=== PATIENT | male | born 1965 | race Caucasian/White ===

== ENCOUNTER 2019-10-02 17:31 | Emergency (ER) | payer BC, SELFPAY ==
[2019-10-02 17:48] VITALS: BP 178/93; PULSE 101; RESP 20; TEMP 36.9; O2SAT 97; BMI 23.7
--- NOTE | 2019-10-02 17:53 | XR_ITS ---
PROCEDURE: XR KUB CLINICAL INDICATION: ABD PAIN COMPARISON: No exams were available for comparison FINDINGS: There is a mild amount of retained colonic feces in the right colon. No intestinal obstruction or free air. Bowel gas pattern is nonspecific with some nondistended gas-filled loops of small bowel as well. No acute bony anomalies or abnormal calcifications. There is mild sclerosis of the SI joints on both sides IMPRESSION: Mild amount of retained colonic feces otherwise negative Dictated by: Ace Marti MD 10/02/2019 22:27 Electronically signed by Ace Marti MD in [place] 10/02/2019 22:27
--- NOTE | 2019-10-02 18:17 | HMH.EDUTC ---
[facility] [place]ression: Constipation Qualifiers: Constipation type: unspecified constipation type Qualified Code(s): K59.00 - Constipation, unspecified Disposition: Home, Self-Care Condition on Discharge: Good Instructions: Constipation Additional Instructions: Drink plenty of fluids. Take the colace (stool softener) everyday. It is not a laxative. Take the magnesium citrate as directed. If that doesn't work, then you could use the suppository. Follow up with your regular doctor or return here for worsening symptoms. GO TO THE ER FOR ANY WORSENING SYMPTOMS OR CONCERNS Prescriptions: Ondansetron [Zofran 4mg ODT] 4 mg PO Q8HP PRN #10 tab.rapdis PRN Reason: Nausea Transmission Status: Received by [id number] Bisacodyl [Bisacodyl 10mg Supp] 10 mg RC DAILYP PRN #10 supp PRN Reason: Constipation Transmission Status: Received by [id number] Docusate Sodium [Colace] 100 mg PO DAILY 30 Days #30 cap Transmission Status: Received by [id number] Magnesium Citrate [Magnesium Citrate 10oz Bottle] 1 bottle PO ONCE #1 bottle Transmission Status: Received by [id number] Referrals: Desean Izaguirre MD [Primary Care Provider] - Time of Disposition: 18:21 Medical Decision Making - Medical Records Medical records reviewed: No: I reviewed the patient's medical records. - Ramy Inquiry Pt receiving controlled substance: No Vital Signs: 10/02/19 17:48 10/02/19 18:20 Temperature 98.4 F 98.4 F Temperature Source Oral Pulse Rate 101 H Pulse Rate [Right Brachial] 101 H Respiratory Rate 20 20 Blood Pressure 178/93 H Blood Pressure [Right Arm] 178/93 H Blood Pressure Mean [Right Arm] 121 Blood Pressure Source [Right Arm] Automatic Cuff Blood Pressure Position [Right Arm] Sitting 02 Sat by Pulse Oximetry 97 Oxygen Delivery Method Room Air - Lab Data Lab Results 10/02/19 17:53: Urine Color Yellow, Urine Appearance Clear, Urine pH 5.0, Ur Specific [place] 1.030, Urine Protein 1+, Urine Glucose (UA) Negative, Urine Ketones 15, Urine Blood 2+, Urine Nitrate Negative, Urine Bilirubin Negative, Urine Urobilinogen 0.2, Ur Leukocyte Esterase Negative Orders (Tests/Meds): ORDERS Category Date Time Status KUB (single view) [XR KUB] Stat Exams 10/02/19 17:53 Taken - Radiology Data #1 Image(s): Abdomen Image Reviewed: Yes I reviewed the patient's radiology image [facility] [place] - General Stated complaint: stomach pain Time Seen by Provider: 10/02/19 18:00 Mode of Arrival: Ambulatory Source of Information: Patient Limitations: No Limitations Description of Symptoms (Recalled from Triage Doc. by RN): PATIENT C/O PAIN AND PRESSURE TO MID-LOWER ABDOMEN SINCE LAST NIGHT. LAST GOOD BOWEL MOVEMENT WAS THE DAY BEFORE YESTERDAY, AND HE STATES HE DOES NOT HAVE BM EVERYDAY. DENIES NAUSEA OR DECREASED APPETITE; STATES HE DID MAKE HIMSELF VOMIT X1 YESTERDAY TO TRY AND MAKE THE PAIN BETTER HEENT Symptoms (Recalled from RN notes): No Resp Symptoms (Recalled from RN notes): No Skin Symptoms (Recalled from RN notes): No MS Symptoms (Recalled from RN notes): No Functional Status (Recalled from RN notes): WNL - History of Present Illness Provider Complaint: He c/o abdominal cramping and constipation since yesterday. - Related Data Home Medications Medication Instructions Recorded Confirmed Metformin HCl [Metformin HCl ER] 500 mg PO BID 10/02/19 10/02/19 Sitagliptin Phosphate [Januvia 100 mg PO DAILY 10/02/19 10/02/19 100mg tablet] Previous Rx's Medication Instructions Recorded Bisacodyl [Bisacodyl 10mg Supp] 10 mg RC DAILYP PRN #10 supp 10/02/19 Docusate Sodium [Colace] 100 mg PO DAILY 30 Days #30 cap 10/02/19 Magnesium Citrate [Magnesium 1 bottle PO ONCE #1 bottle 10/02/19 Citrate 10oz Bottle] Ondansetron [Zofran 4mg ODT] 4 mg PO Q8HP PRN #10 tab.rapdis 10/02/19 Allergies Allergy/AdvReac Type Severity Reaction Stat
[2019-10-02 18:20] VITALS: BP 178/93; PULSE 101; RESP 20; TEMP 36.9; O2SAT 97
[2019-10-02 19:14] LABS: Apearance,Urine Clear (Clear); Bilirubin,Urine Negative (Negative); Blood, Urine 2+ (Negative); Color,Urine Yellow (Yellow); Glucose,Urine (UA) Negative (Negative); Ketones,Urine 15 (Negative); Protein,Urine 1+ (Negative); UTC Leukocyte Esterase,Urine Negative (Negative); UTC Nitrate,Urine Negative (Negative); Urobilinogen,Urine 0.2 EU/dl (0.2)
== END 2019-10-02 18:25 | disposition home or self-care (01) ==
PROVIDERS: Emergency Provider Nurse Practitioner Family; PCP Internal Medicine Adolescent Medicine
DX: K59.00 Constipation, unspecified (principal)
CPT/HCPCS: 74018; 81003; 99202

== ENCOUNTER 2020-01-09 12:22 | Emergency (ER) | payer BC, SELFPAY ==
[2020-01-09 12:34] VITALS: BP 156/93; PULSE 96; RESP 14; TEMP 37.8; O2SAT 98; BMI 23.1
--- NOTE | 2020-01-09 12:35 | XR_ITS ---
PROCEDURE: XR FOOT LT MIN 3V CLINICAL INDICATION: horse stepped on foot Posttraumatic pain COMPARISON: No exams were available for comparison FINDINGS: No fracture or dislocation. No lytic or blastic change. There is normal mineralization. The joint spaces are well-preserved. No significant degenerative/arthritic changes. No erosive changes evident. Other findings:None. IMPRESSION: No acute findings. Dictated by: Ace Marti MD 01/09/2020 18:32 Ace Marti MD in [place] 01/09/2020 18:33
--- NOTE | 2020-01-09 12:37 | HMH.EDUTC ---
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 Take the antibiotics as prescribed and apply the topical antibiotics as directed. Follow up with Dr. White. I put in a referral but you need to call her office and schedule an appointment. Follow up with your regular doctor. GO TO THE ER FOR ANY WORSENING SYMPTOMS Prescriptions: Ciprofloxacin HCl [Cipro 500mg Tab] 500 mg PO BID 10 Days #20 tab Transmission Status: Received by [id number] clindamycin HCL [Clindamycin HCl 300mg Cap] 300 mg PO Q8 10 Days #30 cap Transmission Status: Received by [id number] Referrals: Desean Izaguirre MD [Primary Care Provider] - Irasema White DPM [Staff Physician] - Time of Disposition: 13:21 Medical Decision Making - Medical Records Medical records reviewed: No: I reviewed the patient's medical records. - Ramy Inquiry Pt receiving controlled substance: No Vital Signs: 01/09/20 12:34 01/09/20 13:22 Temperature 100.1 F H 100.1 F H Temperature Source Oral Pulse Rate 96 H Pulse Rate [Right Brachial] 96 H Respiratory Rate 14 14 Blood Pressure 156/93 H Blood Pressure [Right Arm] 156/93 H Blood Pressure Mean [Right Arm] 114 Blood Pressure Source [Right Arm] Automatic Cuff Blood Pressure Position [Right Arm] Sitting 02 Sat by Pulse Oximetry 98 Oxygen Delivery Method Room Air Orders (Tests/Meds): ED MEDICATIONS Discontinued Medications Generic Name Dose Route Start Last Admin Trade Name Freq PRN Reason Stop Dose Admin Ceftriaxone Sodium 1 gm 01/09/20 12:59 01/09/20 13:09 Rocephin 1gm Vial IM 01/09/20 13:00 1 gm ONCE ONE Administration Protocol Lidocaine HCl 0 ml 01/09/20 12:59 01/09/20 13:09 Lidocaine 1% 5ml Pf Vial IM 01/09/20 13:00 2.1 ml ONCE ONE Administration ORDERS Category Date Time Status XR foot LT min 3V Stat Exams 01/09/20 12:35 Taken - Radiology Data #1 Image(s): Foot/Toes Image Reviewed: Yes I reviewed the patient's radiology image, Yes I have reviewed radiologist's interpretation Preliminary Findings: No Fracture [place]en [facility] [place] - General Stated complaint: left toe mashed ao horse stepped on it Time Seen by Provider: 01/09/20 12:37 - History of Present Illness Provider Complaint: He states that he was walking beside his horse 3 days ago when the horse accidentily stepped on his right foot. Most of the weight came down on his great toe. Since then he has had pain at the site and bruising. Also, his nail on that toe was raised partially up off the nail bed. He is diabetic. His tetanus immunization is up to date. - Related Data Home Medications Medication Instructions Recorded Confirmed Metformin HCl [Metformin HCl ER] 500 mg PO BID 10/02/19 01/09/20 Sitagliptin Phosphate [Januvia 100 mg PO DAILY 10/02/19 01/09/20 100mg tablet] Previous Rx's Medication Instructions Recorded Ciprofloxacin HCl [Cipro 500mg 500 mg PO BID 10 Days #20 tab 01/09/20 Tab] clindamycin HCL [Clindamycin HCl 300 mg PO Q8 10 Days #30 cap 01/09/20 300mg Cap] Allergies Allergy/AdvReac Type Severity Reaction Status Date / Time No Known Allergies Allergy Verified 10/02/19 18:00 [facility] History - Hepatitis A Screen Attestation statement:: This patient has been screened for Hep
[2020-01-09 13:22] VITALS: BP 156/93; PULSE 96; RESP 14; TEMP 37.8; O2SAT 98
== END 2020-01-09 13:26 | disposition home or self-care (01) ==
PROVIDERS: Emergency Provider Nurse Practitioner Family; PCP Internal Medicine Adolescent Medicine
DX: S97.82XA Crushing injury of left foot, initial encounter (principal); W55.19XA Other contact with horse, initial encounter; Y92.73 Farm field as the place of occurrence of the external cause; E11.9 Type 2 diabetes mellitus without complications; Z79.84 Long term (current) use of oral hypoglycemic drugs
CPT/HCPCS: 73630; 96372; 99201

== ENCOUNTER → 2020-03-21 07:07 | Outpatient (CLI) | payer BC, SELFPAY ==
[2020-03-22 14:03] LABS: Covid-19 Nasal PCR Sendout Lex NOT DETECTED
== END ==
PROVIDERS: Visit Provider Ophthalmology
DX: Z11.59 Encounter for screening for other viral diseases (principal)
CPT/HCPCS: U0004

== ENCOUNTER → 2020-06-01 07:30 | Outpatient (CLI) | payer BC, SELFPAY ==
[2020-06-01 14:40] LABS: Chloride 103 mmol/L (98-107); Sodium 140 mmol/L (136-145)
[2020-06-01 14:41] LABS: Potassium 4.8 mmoL/L (3.5-5.1)
[2020-06-01 14:43] LABS: Alanine Aminotransferase 18 U/L (12-78); Albumin Level 4.4 g/dl (3.5-5.0); Albumin/Globulin Ratio 1.3 (1.1-1.8); Alkaline Phosphatase 66 U/L (38-126); Anion Gap 10.8 mEq/L (5-15); Aspartate Amino Transferase 19 U/L (17-59); Bilirubin,Total 0.5 mg/dl (0.2-1.3); Blood Urea Nitrogen 23 mg/dl (9-20); Calcium 10.2 mg/dl (8.4-10.2); Carbon Dioxide 31 mmol/L (22.0-30.0); Estimated Glomerular Filt Rate 69 ml/min (>60); GFR (African American) 83 ML/MIN (>60); Globulin 3.5 g/dL (1.3-3.2); Glucose 175 mg/dl (74-100); Total Protein,Serum 7.9 g/dl (6.3-8.2)
[2020-06-01 16:09] LABS: Hemoglobin A1C 6.9 % (4.0-6.0)
== END ==
PROVIDERS: Visit Provider Internal Medicine Adolescent Medicine
DX: E11.9 Type 2 diabetes mellitus without complications (principal); Z79.84 Long term (current) use of oral hypoglycemic drugs
CPT/HCPCS: 36415; 80053; 83036

== ENCOUNTER → 2021-02-23 17:38 | Outpatient (CLI) | payer BC, SELFPAY ==
[2021-02-23 21:23] LABS: Alanine Aminotransferase 20 U/L (12-78); Albumin Level 4.5 g/dl (3.5-5.0); Albumin/Globulin Ratio 1.5 (1.1-1.8); Alkaline Phosphatase 66 U/L (38-126); Anion Gap 14.1 mEq/L (5-15); Aspartate Amino Transferase 34 U/L (17-59); Bilirubin,Total 0.5 mg/dl (0.2-1.3); Blood Urea Nitrogen 22 mg/dl (9-20); Carbon Dioxide 27 mmol/L (22.0-30.0); Chloride 104 mmol/L (98-107); Cholesterol 218 mg/dl (140-200); Estimated Glomerular Filt Rate 99 ml/min (>60); GFR (African American) 120 ML/MIN (>60); Glucose 149 mg/dl (74-100); HDL Cholesterol 44 mg/dl (40-60); Potassium 5.1 mmoL/L (3.5-5.1); Sodium 140 mmol/L (136-145); Total Protein,Serum 7.5 g/dl (6.3-8.2); Triglycerides 76 mg/dl (30-150); VLDL Cholesterol 15 mg/dL (0-40)
[2021-02-23 21:34] LABS: Direct LDL Cholesterol 151.64 mg/dL (100-129)
== END ==
PROVIDERS: Visit Provider Internal Medicine Adolescent Medicine
DX: E11.9 Type 2 diabetes mellitus without complications (principal); Z79.84 Long term (current) use of oral hypoglycemic drugs
CPT/HCPCS: 80053; 80061; 83036

== ENCOUNTER 2022-03-24 22:12 | Emergency (ER) | payer BC, SELFPAY ==
[2022-03-24 22:14] VITALS: BP 96/63; PULSE 68; RESP 16; TEMP 36.4; O2SAT 97; BMI 23.7
--- NOTE | 2022-03-24 22:56 | CT_ITS ---
PROCEDURE INFORMATION: Exam: CT Abdomen And Pelvis With Contrast Exam date and time: 03/24/2022 11:28 PM Age: 57 years old Clinical indication: Vomiting TECHNIQUE: Imaging protocol: Computed tomography of the abdomen and pelvis with contrast. Radiation optimization: All CT scans at this facility use at least one of these dose optimization techniques: automated exposure control; mA and/or kV adjustment per patient size (includes targeted exams where dose is matched to clinical indication); or iterative reconstruction. Contrast material: ISOVUE; Contrast volume: 75 ml; Contrast route: IV; COMPARISON: CR XR KUB 10/02/2019 5:52 PM FINDINGS: Lungs: No acute finding. Coronary arteries: There are moderate coronary artery calcifications. Liver: Mild hepatic steatosis is evident. Gallbladder and bile ducts: Normal. No calcified stones. No ductal dilation. Pancreas: Normal. No ductal dilation. Spleen: Normal. No splenomegaly. Adrenal glands: Normal. No mass. Kidneys and ureters: Normal. No hydronephrosis. There is a 7 mm left cortical cyst and a 30 mm right cortical cyst. Stomach and bowel: Multiple loops of small bowel demonstrate diffuse wall thickening and enhancement. There may also be wall thickening of the descending colon although it is not distended. Appendix: No evidence of appendicitis. Intraperitoneal space: There is mild ascites. Mild mesenteric edema is noted. Vasculature: There is moderate calcific atherosclerotic disease. There is no aneurysmal dilation of the abdominal aorta. Lymph nodes: There are no enlarged mesenteric lymph nodes. Urinary bladder: Unremarkable as visualized. Reproductive: Unremarkable as visualized. Bones/joints: Unremarkable. No acute fracture. Soft tissues: Unremarkable. IMPRESSION: 1. Findings consistent with enteritis and possible enterocolitis. There is no obstruction. Mild ascites and mesenteric edema are evident. 2. Mild fatty infiltration of the liver. 3. Moderate coronary artery calcifications.
[2022-03-24 23:05] LABS: Basophils # 0.1 K/mm3 (0-0.2); Basophils % 0.4 % (0.1-2.0); Eosinophils # 0.3 K/mm3 (0.0-0.4); Eosinophils % 1.3 % (0.1-12.0); Hematocrit 51.2 % (42.0-52.0); Hemoglobin 16.6 g/dL (14.1-18.0); Lymphocytes # 2.3 K/mm3 (0.7-4.5); Lymphocytes % 11.2 % (10-50); Mean Corpuscular HGB Conc 32.4 g/dL (31.8-35.4); Mean Corpuscular Hemoglobin 30.1 pg (27.0-31.2); Mean Corpuscular Volume 92.8 fl (80-94); Mean Platelet Volume 8.5 fl (7.4-10.4); Monocytes # 0.8 K/mm3 (0.1-1.0); Monocytes % 4.1 % (1.7-9.3); Neutrophils # 16.8 K/mm3 (1.8-7.8); Neutrophils % 82.9 % (37.0-80.0); Platelet Count 283 K/mm3 (142-424); Red Blood Count 5.52 M/mm3 (4.60-6.20); Red Cell Distribution Width 13.2 % (11.5-17.5)
--- NOTE | 2022-03-24 23:08 | ECG_ITS ---
APPROVED REPORT Exam: Resting ECG HR:61 bpm ECG Measurements Heart Rate 61 AXES MI 155 P 50 QRSd 106 QRS 57 QT 388 T 71 QTc 392 Conclusion SINUS RHYTHM NORMAL ECG UNCONFIRMED REPORT Electronically signed by : Todd Jeffery MD 03/26/2022 20:01:41
[2022-03-24 23:09] LABS: White Blood Count 20.2 K/mm3 (4.8-10.8)
[2022-03-24 23:11] LABS: Lactic Acid 1.7 mmol/L (0.7-2.1); MANUAL DIFFERENTIAL MANUAL DIFFERENTIAL (MANUAL DIFF)
[2022-03-24 23:12] LABS: Alanine Aminotransferase 24 U/L (12-78); Albumin Level 4.1 g/dl (3.5-5.0); Albumin/Globulin Ratio 1.2 (1.1-1.8); Alkaline Phosphatase 103 U/L (38-126); Amylase 62 U/L (30-110); Aspartate Amino Transferase 53 U/L (17-59); Bilirubin,Total 0.5 mg/dl (0.2-1.3); Blood Urea Nitrogen 29 mg/dl (9-20); Calcium 9.9 mg/dl (8.4-10.2); Carbon Dioxide 23 mmol/L (22.0-30.0); Chloride 106 mmol/L (98-107); Creatinine Clearance Estimated 79 mL/min (50-200); Estimated Glomerular Filt Rate 62 ml/min (>60); GFR (African American) 75 ML/MIN (>60); Globulin 3.3 g/dL (1.3-3.2); Glucose 177 mg/dl (74-100); Lipase 90 U/L (23-300); Sodium 140 mmol/L (136-145); Total Protein,Serum 7.4 g/dl (6.3-8.2)
[2022-03-24 23:40] LABS: Lymphocytes % 15 % (10-50); Neutrophils % 77 % (42-76); Platelet Estimate Normal; RBC Morphology Normal; Total Cells Counted 100
--- NOTE | 2022-03-25 00:46 | XR_ITS ---
PROCEDURE INFORMATION: Exam: XR Sacrum and Coccyx, 2 or More Views Exam date and time: 03/25/2022 12:58 AM Age: 57 years old Clinical indication: Injury or trauma; Fall; Blunt trauma (contusions or hematomas) TECHNIQUE: Imaging protocol: XR of the sacrum and coccyx, 2 or more views. COMPARISON: CR XR HIP LT 2-3V W/PELVIS 03/25/2022 12:53 AM FINDINGS: Bones/joints: The sacrum and coccyx are intact. There is no fracture. The SI joints, hips and pubic symphysis are normally aligned. Soft tissues: Normal. Organs: Urinary bladder is distended with contrast from recent CT. IMPRESSION: No acute fracture of the sacrum and coccyx.
--- NOTE | 2022-03-25 00:46 | XR_ITS ---
PROCEDURE INFORMATION: Exam: XR Left Hip Exam date and time: 03/25/2022 12:53 AM Age: 57 years old Clinical indication: Injury or trauma; Fall; Blunt trauma (contusions or hematomas); Left; Hip TECHNIQUE: Imaging protocol: Radiologic exam of the Left hip. Views: 2 or 3 views hip with pelvis when performed. COMPARISON: CT ABDOMEN PELVIS W CON 03/24/2022 11:28 PM FINDINGS: Bones/joints: The bony pelvis is intact. There is no fracture. The SI joints, hips and pubic symphysis are normally aligned. Dedicated imaging of the left hip does not demonstrate a fracture or evidence of avascular necrosis. No significant degenerative changes are appreciated. Soft tissues: Unremarkable. IMPRESSION: No acute fracture of the pelvis or hips.
--- NOTE | 2022-03-25 01:04 | HMH.EDNVD ---
Discharge Plan Disposition Patient Disposition: Home, Self-Care Chief Complaint: Nausea/Vomiting/Diarrhea Prescriptions Prescriptions: No Action clindamycin HCl 300 MG capsule 300 mg PO Q8 10 Days Qty: 30 0RF ciprofloxacin HCl 500 MG tablet 500 mg PO BID 10 Days Qty: 20 0RF metformin 500 MG tablet extended release 24 hr 500 mg PO BID sitagliptin phosphate 100 MG tablet 100 mg PO DAILY Referrals Follow up/Referrals: Todd Jeffery MD [Primary Care Provider] - See instructions Clinical Impressions Clinical Impression: Enteritis Instructions Patient Instructions: DI for Nausea -- Adult Discharge ED Provider: Anoop Herr Nausea/Vomiting/Diarrhea HPI General Chief complaint: Nausea/Vomiting/Diarrhea Stated complaint: AO 03/24 fall, vomiting Time Seen by Provider: 03/25/22 01:04 Mode of Arrival: Ambulatory Source of Information: Patient, Spouse and Medical Record Limitations: No Limitations Description of Symptoms (Recalled from ER Triage Doc. by RN): pt c/o vomiting and weakness the pt stated that at 6pm he was eating dinner and vomited at 7pm then got very weak. the pt vomited again anf then laid down when the pt got up he proceeded to vomit again he fell from the kitchen table from a seated position and was extremely dizzy the pt states that he vomited a few times on the way to the ED tonight. the pt states he has had 3 of these episodes in the past few years History of Present Illness HPI Narrative: acute episode of nausea and vomiting after meal has some abd pain - no true syncope - no palpitations and has had a few episodes in past assoc with meals - no bldy diarrhea and back to baseline now - no chest pain - pt is diabetic - no known ht dis and no tob use complaint: vomiting and abdominal pain Onset (ago): hour(s) Associated Abdominal Pain: Yes Location of pain: LLQ Severity: similar to previous episodes Quality: sharp Consistency: intermittent Associated symptoms: denies other symptoms Related Data Home Medications Medication Instructions Recorded Confirmed metformin 500 mg tablet,extended 500 mg PO BID Diabetes 10/02/19 01/09/20 release 24 hr sitagliptin phosphate 100 mg tablet 100 mg PO DAILY Diabetes 10/02/19 01/09/20 Previous Rx's Medication Instructions Recorded ciprofloxacin HCl 500 mg tablet 500 mg PO BID 10 days #20 tabs 01/09/20 clindamycin HCl 300 mg capsule 300 mg PO Q8 10 days #30 caps 01/09/20 Allergies Allergy/AdvReac Type Severity Reaction Status Date / Time No Known Allergies Allergy Verified 10/02/19 18:00 [facility] Disclaimer: The information contained in this section may have been updated after the patient was seen, as this information can be updated by other users. Social History Smoking Status: Former smoker alcohol intake: never current occupational status: other Travel in the last 8 weeks: None ROS Obtained: Yes All systems reviewed & no additional complaints except as documented Physical Exam General General appearance: alert Head Head exam: normocephalic Eye Eye exam: Present PERRL; Absent scleral icterus ENT ENT exam: Present mucous membranes moist Neck Neck exam: Present trachea midline Respiratory Respiratory exam: Absent respiratory distress Cardiovascular Cardiovascular exam: Present regular rate and systolic murmur Abdominal Exam Abdominal exam: Present soft; Absent tenderness, guarding, rebound or rigidity Extremities Exam Extremities exam: Present full ROM Neurological Exam Neurological exam: Present alert, oriented X3 and CN II-XII intact Skin Skin exam: Present warm; Absent rash Medical Decision Making Medical Records Medical records reviewed: Yes I reviewed the patient's medical records. Ramy Inquiry Pt receiving controlled substance: No Vital Signs: 03/24/22 22:14 Temperature 97.6 F Temperature Source Oral Pulse Rate [Left] 68 Respiratory Rate 16 Blood Pr
[2022-03-25 01:17] LABS: Troponin I < 0.01 ng/ml (0.00-0.034)
[2022-03-25 01:21] LABS: Microscopic, Urine URINE MICROSCOPIC (MICROSCOPIC)
[2022-03-25 01:22] LABS: Appearance,Urine CLEAR (Clear); Bilirubin,Urine Negative (Negative); Blood, Urine Negative (Negative); Color,Urine YELLOW (Yellow); Glucose,Urine (UA) 2+ (Negative); Ketones,Urine 1+ (Negative); Leukocyte Esterase,Urine Negative (Negative); Nitrate,Urine Negative (Negative); PH,Urine 5.5 (5.0-8.5); Protein,Urine Negative (Negative); Urobilinogen,Urine 0.2 EU/dl (0.2)
[2022-03-25 02:07] LABS: Troponin I < 0.01 ng/ml (0.00-0.034)
[2022-03-25 02:40] VITALS: BP 131/79; PULSE 72; RESP 16; TEMP 36.7; O2SAT 98
== END 2022-03-25 02:56 | disposition home or self-care (01) ==
PROVIDERS: Emergency Provider Emergency Medicine; PCP Internal Medicine Adolescent Medicine
DX: K52.9 Noninfective gastroenteritis and colitis, unspecified (principal)
CPT/HCPCS: 72220; 73502; 74177; 80053; 81001; 82150; 83605; 83690; 84484; 85007; 85025; 87040; 93005; 96375; 99285; J2405; Q9967

== ENCOUNTER 2023-05-07 08:09 | Outpatient (CLI) | payer BC, SELFPAY ==
--- NOTE | 2023-05-07 08:13 | US_ITS ---
FINAL REPORT CLINICAL HISTORY: H/O NICOTINE DEPENDENCE COMPARISON: None FINDINGS: ULTRASOUND ABDOMINAL AORTA Findings: Sagittal and transverse images with Doppler exam was performed of the aorta. There is no evidence of abdominal aortic aneurysm. Aorta measures up to 1.7 cm. Mild plaque disease is noted. Proximal iliac vessels are normal in caliber. Aorta is patent by Doppler exam without gross stenosis. IMPRESSION: No evidence of aortic aneurysm Reviewed, Interpreted and Dictated by David Beck MD Transcribed by Noemi Vizcarra Authenticated and [facility]
== END 2023-05-07 23:59 ==
LOC: RAD 08:10
PROVIDERS: PCP Internal Medicine Adolescent Medicine; Visit Provider Internal Medicine Adolescent Medicine
DX: Z87.891 Personal history of nicotine dependence (principal)
CPT/HCPCS: 76705